=== PATIENT | female | born 1945 | race Hispanic/Latino ===

== ENCOUNTER 2018-05-29 10:30 | Day surgery (SDC) | payer OTHER ==
[2018-05-29] MEDS ORDERED: Midazolam 2 MG/2 ML VIAL ONE (10:40)
[2018-05-29] MEDS ORDERED: Lidocaine 2% MPF (5 ml) Inj ONE ×2 (10:41→12:18)
[2018-05-29] MEDS ORDERED: Sodium Chloride 0.45% 1,000 ML IV SCH (13:00)
[2018-05-29 13:39] VITALS: BMI 27.4
[2018-06-08 15:07] VITALS: RESP 20; O2SAT 100
--- NOTE | 2018-06-15 08:45 | CARDCATH ---
Copied To: Marybel Gore DO Attending MD: Marybel Gore DO PROCEDURE DATE: 05/29/2018 PROCEDURE: Cardiac catheterization. REASON FOR PROCEDURE: Chest pain and abnormal EKG. DESCRIPTION OF PROCEDURE: The patient was brought electively to cardiac catheterization and was prepped and draped in a sterile manner. Right femoral groin was infiltrated with 2% subcu lidocaine. A 6-[place] sheath was inserted into the right femoral artery without difficulty. Coronary angiography was performed using coronary diagnostic catheters. Left coronary system was assessed as well as the right pulmonary system and left ventricular EDP and EF were obtained using a pigtail catheter. Left ventricular/aortic valve gradient was assessed on pullback. After coronary angiography was performed utilizing standard imaging projections, all catheters were removed. sheath was then removed and the right femoral artery was sealed with an AngioSeal device. Adequate hemostasis was achieved. The patient was then transferred for PCI to the 1. VESSEL ANATOMY/FINDINGS: Left ventriculogram revealed an EF of 50 to 55% with inferoapical hypokinesis which was moderate. There was no gradient across the aortic valve. Left main did not reveal any significant obstructive disease. LAD was a type 2 without significant obstructive disease. Left circ proper did not reveal any significant obstructive disease. OM1 revealed a 99% proximal lesion. OM2 did not reveal any significant obstructive disease. First and second diagonals did not reveal any significant obstructive disease. RCA was a dominant vessel. 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 There was collateral flow from both the circumflex system and the LAD system to the RPDA. CONCLUSION: 1. Mildly reduced EF of 50 to 55% with inferoapical moderate hypokinesis. 2. 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 RECOMMENDATION: PCI to the obtuse marginal #1. The patient tolerated the procedure well. There were no complications, minimal blood loss. Marybel Gore DO
== END 2018-05-29 20:00 | disposition short-term general hospital (02) ==
LOC: C.CATHLAB 10:30
PROVIDERS: ATTEND Internal Medicine Cardiovascular Disease
DX: I25.119 Atherosclerotic heart disease of native coronary artery with unspecified angina pectoris (principal); I42.9 Cardiomyopathy, unspecified